=== PATIENT | female | born 1960 | race Caucasian/White ===

== ENCOUNTER 2019-04-22 22:55 | Emergency (ER) | payer OTHER ==
[2019-04-23 00:56] LABS: Absolute Lymphocytes (CBC) 1.9 K/uL (0.7-4.9); Basophils % 0.5 % (0-1.3); Hematocrit 41.2 % (36.0-45.0); Lymphocytes % 18.8 % (15.3-44.8); MPV 8.1 fL (7.6-11.3); RBC Red Blood Cell Count 4.62 M/uL (3.86-4.86)
[2019-04-23 01:26] LABS: Albumin 3.8 g/dL (3.4-5.0); Bilirubin Total 0.7 mg/dL (0.2-1.0); Potassium 4.1 mmol/L (3.5-5.1); Protein, Total 7.7 g/dL (6.4-8.2)
--- NOTE | 2019-04-23 03:21 | ER ---
Nurse's Notes [facility] Name: Tamia Santana Age: 58 yrs Sex: Female : 1960 Arrival Date: 04/22/2019 Time: 23:08 Bed 7 Private MD: Diagnosis: right leg pain Presentation: 04/22 23:25 Presenting complaint: Patient states: Pain to right groin on walking; Denies any lp1 trauma; Able to bear weight. Transition of care: patient was not received from another setting of care. Onset of symptoms was April 22, 2019. Risk Assessment: Do you want to hurt yourself or someone else? Patient reports no desire to harm self or others. Initial Sepsis Screen: Does the patient meet any 2 criteria? No. Patient's initial sepsis screen is negative. Does the patient have a suspected source of infection? No. Patient's initial sepsis screen is negative. Care prior to arrival: None. 23:25 Method Of Arrival: Wheelchair lp1 23:25 Acuity: KEVIN 4 lp1 Historical: - Allergies: 23:27 Hydrochlorothiazide; lp1 23:27 Plendil; lp1 - Home Meds: 23:27 lisinopril 10 mg Oral tab 1 tab once daily [Active]; pravastatin 40 mg oral tab once lp1 daily [Active]; Synthroid 100 mcg oral tab once daily [Active]; Zyrtec Oral [Active]; - PMHx: 23:27 High Cholesterol; Hypertension; thyroid disease; lp1 - PSHx: 23:27 shoulder surgery; Tonsillectomy; Adenoids; lp1 - Immunization history:: Adult Immunizations up to date. - Ebola Screening: : No symptoms or risks identified at this time. - Social history:: Smoking status: Patient/guardian denies using tobacco. Screenin:21 Abuse screen: Denies threats or abuse. Denies injuries from another. Nutritional rv screening: No deficits noted. Tuberculosis screening: No symptoms or risk factors identified. Fall Risk None identified. Assessment: 23:20 General: Appears in no apparent distress. uncomfortable, Behavior is calm, cooperative. rv Pain: Complains of pain in right gluteal fold. Neuro: Level of Consciousness is awake, alert, obeys commands, Oriented to person, place, time, situation. Cardiovascular: Patient's skin is warm and dry. Respiratory: Airway is patent. GI: No signs and/or symptoms were reported involving the gastrointestinal system. : No signs and/or symptoms were reported regarding the genitourinary system. EENT: No signs and/or symptoms were reported regarding the EENT system. Derm: Skin is intact. Musculoskeletal: Swelling absent. 04/23 01:55 Reassessment: Patient appears in no apparent distress at this time. Patient and/or rv family updated on plan of care and expected duration. Pain level reassessed. Patient is alert, oriented x 3, equal unlabored respirations, skin warm/dry/pink. patient just came back from CT scan. awaiting results. 02:27 Reassessment: Patient appears in no apparent distress at this time. Patient and/or aa1 family updated on plan of care and expected duration. Pain level reassessed. Patient is alert, oriented x 3, equal unlabored respirations, skin warm/dry/pink. Awaiting CT results. 03:40 Reassessment: Patient appears in no apparent distress at this time. Patient is alert, aa1 oriented x 3, equal unlabored respirations, skin warm/dry/pink. Discussed d/c \T\ f/u instructions with pt \T\ spouse; denies questions or concerns at this time. Vital Signs: 04/22 23:25 BP 142 / 81; Pulse 85; Resp 18; Temp 98.7(TE); Pulse Ox 99% on R/A; Weight 88.45 kg lp1 (R); Height 5 ft. 2 in. (157.48 cm); Pain 0/10; 04/23 01:09 BP 121 / 70; Pulse 86; Resp 18; Pulse Ox 94% on R/A; aa1 01:56 BP 131 / 78; Pulse 85; Resp 16; Pulse Ox 99% ; rv 02:27 BP 124 / 73; Pulse 82; Resp 18; Pulse Ox 97% on R/A; aa1 03:40 BP 115 / 72; Pulse 79; Resp 16; Temp 98.5; Pulse Ox 96% on R/A; Pain 4/10; aa1 04/22 23:25 Body Mass Index 35.67 (88.45 kg, 157.48 cm) lp1 ED Course: 04/22 23:08 Patient arrived in ED. cf2 23:12 Mike Penn MD is Attending Physician. ps1 23:20 Ziggy Anand, RN is Primary Nurse. rv 23:21 Patient has correct armband on for positive identification. Placed in gown. Bed in low rv position. Call light in reach. Side rails up X 1. Pulse ox on. NIBP on. 23:26 Triage completed. lp1 23:27 Arm band placed on. lp1 23:44 Radiology exam delayed due to lab results not completed at this time. (BUN/Creatinine). vm2 04/23 01:44 Inserted saline lock: 20 gauge in left antecubital area, using aseptic technique. lp1 02:04 CT Pelvis w cont In Process Unspecified. EDMS 03:40 No provider procedures requiring assistance completed. IV discontinued, intact, aa1 bleeding controlled, No redness/swelling at site. Pressure dressing applied. Administered Medications: No medications were administered Outcome: 03:20 Discharge ordered by MD. ps1 03:40 Discharged to home via wheelchair, with significant other. aa1 03:40 Condition: good 03:40 Discharge instructions given to patient, significant other, Instructed on discharge instructions, follow up and referral plans. medication usage, Demonstrated understanding of instructions, follow-up care, medications, Prescriptions given X 2. 03:41 Patient left the ED. aa1 Signatures: Dispatcher [employer] EDLA Gloria Landon RN RN aa1 Pao Reese RN RN 1 Emma Jessica 2 Mike Penn MD MD ps1 Ziggy Anand, RUSLAN RN Libra Leahy [facility]
--- NOTE | 2019-04-23 03:21 | EDPHYS ---
Physician Documentation [facility] Name: Tamia Santana Age: 58 yrs Sex: Female : 1960 Arrival Date: 04/22/2019 Time: 23:08 Bed 7 Private MD: ED Physician Mike Penn HPI: 04/22 23:21 This 58 yrs old Female presents to ER via Unassigned with complaints of Hip ps1 Pain, Leg Pain. 23:21 patient states that she was in bed watching a movie and developed right inguinal pain. ps1 Patient states that it was atraumatic. Has increased walking lately and additionally had recent viral syndrome. Pain worse with flexion.. Historical: - Allergies: 23:27 Hydrochlorothiazide; lp1 23:27 Plendil; lp1 - Home Meds: 23:27 lisinopril 10 mg Oral tab 1 tab once daily [Active]; pravastatin 40 mg oral tab once lp1 daily [Active]; Synthroid 100 mcg oral tab once daily [Active]; Zyrtec Oral [Active]; - PMHx: 23:27 High Cholesterol; Hypertension; thyroid disease; lp1 - PSHx: 23:27 shoulder surgery; Tonsillectomy; Adenoids; lp1 - Immunization history:: Adult Immunizations up to date. - Ebola Screening: : No symptoms or risks identified at this time. - Social history:: Smoking status: Patient/guardian denies using tobacco. ROS: 23:21 Constitutional: Negative for fever, chills, and weight loss, Eyes: Negative for injury, ps1 pain, redness, and discharge, Cardiovascular: Negative for chest pain, palpitations, and edema, Respiratory: Negative for shortness of breath, cough, wheezing, and pleuritic chest pain, Abdomen/GI: Negative for abdominal pain, nausea, vomiting, diarrhea, and constipation, Skin: Negative for injury, rash, and discoloration, Neuro: Negative for headache, weakness, numbness, tingling, and seizure. 23:21 MS/extremity: Positive for pain, of the right inguinal area and right leg. Exam: 23:21 Constitutional: This is a well developed, well nourished patient who is awake, alert, ps1 and in no acute distress. Head/Face: Normocephalic, atraumatic. Eyes: Pupils equal round and reactive to light, extra-ocular motions intact. Lids and lashes normal. Conjunctiva and sclera are non-icteric and not injected. Chest/axilla: Normal chest wall appearance and motion. Nontender with no deformity. No lesions are appreciated. Cardiovascular: Regular rate and rhythm. No gallops, murmurs, or rubs. Normal PMI, no JVD. No pulse deficits. Respiratory: Lungs have equal breath sounds bilaterally, clear to auscultation and percussion. No rales, rhonchi or wheezes noted. No increased work of breathing, no retractions or nasal flaring. Abdomen/GI: Soft, non-tender, with normal bowel sounds. No distension or tympany. No guarding or rebound. No evidence of tenderness throughout. Skin: Warm, dry with normal turgor. Normal color with no rashes, no lesions, and no evidence of cellulitis. Neuro: Awake and alert, GCS 15, oriented to person, place, time, and situation. Cranial nerves II-XII grossly intact. Sensory grossly intact. 23:21 Musculoskeletal/extremity: Extremities: grossly normal except: noted in the right inguinal area and right leg: tenderness, inguinal adenopathy. Vital Signs: 23:25 BP 142 / 81; Pulse 85; Resp 18; Temp 98.7(TE); Pulse Ox 99% on R/A; Weight 88.45 kg lp1 (R); Height 5 ft. 2 in. (157.48 cm); Pain 0/10; 04/23 01:09 BP 121 / 70; Pulse 86; Resp 18; Pulse Ox 94% on R/A; aa1 01:56 BP 131 / 78; Pulse 85; Resp 16; Pulse Ox 99% ; rv 02:27 BP 124 / 73; Pulse 82; Resp 18; Pulse Ox 97% on R/A; aa1 03:40 BP 115 / 72; Pulse 79; Resp 16; Temp 98.5; Pulse Ox 96% on R/A; Pain 4/10; aa1 04/22 23:25 Body Mass Index 35.67 (88.45 kg, 157.48 cm) lp1 MDM: 00:05 Patient medically screened. ps1 03:18 Data reviewed: vital signs, nurses notes, and as a result, I will discharge patient. ps1 Counseling: I had a detailed discussion with the patient and/or guardian regarding: the historical points, exam findings, and any diagnostic results supporting the discharge/admit diagnosis, radiology results, to return to the emergency department if symptoms worsen or persist or if there are any questions or concerns that arise at home. 04/22 23:30 Order name: CBC with Diff; Complete Time: 01:28 ps1 04/22 23:30 Order name: CMP; Complete Time: 01:28 ps1 04/22 23:30 Order name: CT Pelvis w cont ps1 04/23 01:39 Order name: IV Start; Complete Time: 01:42 aa1 Administered Medications: No medications were administered Disposition: 04/23/19 03:20 Discharged to Home. Impression: right leg pain. - Condition is Stable. - Discharge Instructions: Leg Cramps. - Prescriptions for Anaprox 275 mg Oral Tablet - take 1 tablet by ORAL route every 8 hours As needed; 30 tablet. Robaxin 500 mg Oral Tablet - take 2 tablet by ORAL route every 6 hours As needed; 40 tablet. - Medication Reconciliation Form, Thank You Letter, Antibiotic Education, Prescription Opioid Use form. - Follow up: Private Physician; When: As needed; Reason: Further diagnostic work-up, Recheck today's complaints, Continuance of care, Re-evaluation by your physician. Follow up: Emergency Department; When: As needed; Reason: Worsening of condition. - Problem is new. - Symptoms are unchanged. Signatures: Dispatcher [employer] EDMS Gloria Landon RN RN aa1 Pao Reese RN RN lp1 Mike Penn MD MD ps1 Ziggy Anand RN RN rv Corrections: (The following items were deleted from the chart) 03:41 03:20 04/23/2019 03:20 Discharged to Home. Impression: right leg pain. Condition is aa1 Stable. Forms are Medication Reconciliation Form, Thank You Letter, Antibiotic Education, Prescription Opioid Use. Follow up: Private Physician; When: As needed; Reason: Further diagnostic work-up, Recheck today's complaints, Continuance of care, Re-evaluation by your physician. Follow up: Emergency Department; When: As needed; Reason: Worsening of condition. Problem is new. Symptoms are unchanged. ps1
[2019-04-23 03:53] VITALS: BP 115/72; TEMP 98.5; O2SAT 96
--- NOTE | 2019-04-23 11:33 | RAD REPORT ---
EXAM DESCRIPTION: Pelvis W/Cont CLINICAL HISTORY: Right inguinal adenopathy/hernia TECHNIQUE: Contiguous axial images obtained through the pelvis following the uneventful administrati on of IV contrast. Coronal and sagittal reformatted images were provided. This exam was performed according to our departmental dose-optimization program, which includes autom ated exposure control, adjustment of the mA and/or kV according to patient size and/or use of iterati ve reconstruction technique. COMPARISON: None available for comparison. FINDINGS: Bowel: No obstruction. No appreciable mucosal thickening. Appendix: Normal caliber appendix. No findings to suggest acute appendicitis. Urinary bladder: Unremarkable Reproductive: Unremarkable as visualized Lymph nodes: No pathologically enlarged lymph nodes. Peritoneum: No focal fluid collection. No free air. Vessels: The distal abdominal aorta is unremarkable. Abdominal wall: Unremarkable Bones: Mild degenerative changes at the lower lumbar spine and bilateral hip joints. Osteochondral micah dies lateral to the right hip joint. IMPRESSION: No lymphadenopathy or hernia. Electronically signed by: Rebecca Zuleta MD 04/23/2019 2:48 AM CDT Due to temporary technical issues with the PACS/Fluency reporting system, reports are being signed by the in house radiologist as a courtesy to ensure prompt reporting. The interpreting radiologist is f ully responsible for the content of the report.
== END 2019-04-23 03:41 | disposition home or self-care (01) ==
LOC: ER 22:55
DX: M79.604 Pain in right leg (principal); I10 Essential (primary) hypertension; E78.00 Pure hypercholesterolemia, unspecified; Z88.8 Allergy status to other drugs, medicaments and biological substances
CPT/HCPCS: 85025; 36415; 80053; 72193; 99284; Q9967